=== PATIENT | female | born 1970 | race Hispanic/Latino ===

== ENCOUNTER 2024-02-02 09:35 | Emergency (ER) | payer SELFPAY ==
[~2024-02-02] VITALS: Ht 154.9 cm; Wt 81.2 kg
[2024-02-02 10:01] LABS: BASOPHILS # (AUTO) 0.03 K/uL (0.00-0.20); BASOPHILS % (AUTO) 0.5 % (0.0-5.0); EOSINOPHILS # (AUTO) 0.22 K/uL (0.00-0.70); EOSINOPHILS % (AUTO) 3.9 % (0.0-8.0); HEMATOCRIT 36.1 % (36-48); IMMATURE GRANULOCYTE ABSOLUTE 0.02 K/uL (0-1); LYMPHOCYTES # (AUTO) 1.2 K/uL (1.0-4.8); LYMPHOCYTES % (AUTO) 21.8 % (21.0-51.0); MEAN CORPUSCULAR HEMOGLOBIN 27.4 pg (27.0-33.0); MEAN CORPUSCULAR HGB CONC 33.8 g/dL (32.0-36.0); MEAN CORPUSCULAR VOLUME 80.9 fL (79-99); MONOCYTES # (AUTO) 0.6 K/uL (0.1-1.0); NEUTROPHILS # (AUTO) 3.6 K/uL (1.8-7.7); NEUTROPHILS % (AUTO) 63.4 % (40.0-77.0); PLATELET COUNT (AUTO) 288 K/uL (130-400); RED BLOOD CELL COUNT(AUTO) 4.46 MIL/uL (4.00-5.50); RED CELL DISTRIBUTION WIDTH 13.2 % (11.0-15.5); WHITE BLOOD COUNT (AUTO) 5.6 K/uL (4.8-10.8)
[2024-02-02 10:11] LABS: CREATININE 0.7 mg/dL (0.5-1.0); POTASSIUM 3.4 mmol/L (3.5-5.1)
[2024-02-02 10:13] LABS: RAPID GROUP A STREP negative (NEGATIVE)
[2024-02-02 10:14] LABS: INR 0.98 (0.85-1.15); PROTHROMBIN TIME 10.6 SEC (9.6-11.6)
[2024-02-02 10:15] LABS: MAGNESIUM 1.8 mg/dL (1.80-2.40); PARTIAL THROMBOPLASTIN TIME 27.7 SEC (26.3-35.5)
[2024-02-02 10:26] LABS: SARS-CoV-2, RNA, NAAT NEGATIVE SARS CoV-2 (NEGATIVE)
[2024-02-02 10:27] LABS: INFLUENZA TYPE A Negative For Type A (NEGATIVE); INFLUENZA TYPE B Negative For Type B (NEGATIVE)
[2024-02-02 10:30] LABS: B-TYPE NATRIURETIC PEPTIDE 42 pg/mL (0-100)
[2024-02-02 11:16] LABS: APPEARANCE,URINE CLOUDY (CLEAR); BILIRUBIN,URINE NEGATIVE (NEGATIVE); COLOR,URINE COLORLESS (YELLOW); GLUCOSE, URINE (UA) NEGATIVE (NEGATIVE); KETONES,URINE NEGATIVE (NEGATIVE); LEUKOCYTE ESTERASE ,URINE NEGATIVE Leu/uL (NEGATIVE); NITRATE,URINE NEGATIVE (NEGATIVE); OCCULT BLOOD,URINE NEGATIVE (NEGATIVE); PH,URINE 7.5 (5.0-8.0); PROTEIN,URINE NEGATIVE (NEGATIVE); UROBILINOGEN,URINE 0.2 mg/dL (0.2-1.0)
[2024-02-02 11:23] LABS: ADD UA MICROSCOPIC NO
[2024-02-02] MEDS ORDERED: ALBU18HF7 IH (11:34)
[2024-02-02] MEDS ORDERED: PRED5TAB PO (11:34)
[2024-02-02 11:35] VITALS: PULSE 75; RESP 18
[2024-02-02] MEDS: IpraTROPium/alBUTERol SULFATE 3 ML SOLUTION IH ONE (11:35)
[2024-02-02 12:07] VITALS: BP 149/76; PULSE 71; RESP 18; TEMP 98.8; O2SAT 98
== END 2024-02-02 12:08 | disposition home or self-care (01) ==
LOC: EDH 09:35
DX: J06.9 Acute upper respiratory infection, unspecified (principal); Z20.822 Contact with and (suspected) exposure to COVID-19
CPT/HCPCS: 36415; 71045; 80048; 81003; 82550; 83735; 83880; 84484; 85025; 85610; 85730; 87635; 87804; 87880; 93005; 94640